=== PATIENT | female | born 1985 | race Caucasian/White ===

== ENCOUNTER 2025-02-20 11:26 | Emergency (ER) | payer BC, SELFPAY ==
[2025-02-20 11:39] VITALS: BP 138/75
[2025-02-20 12:18] LABS: Hematocrit 40.4 % (37.0-47.0); Hemoglobin 14.3 g/dL (12.0-16.0); Mean Corp Hgb Conc. 35.4 g/dL (33.0-37.0); Mean Corpuscular Volume 80.8 fL (81.0-99.0); Nucleated Red Blood Cells % 0 %; Platelet Count 292 10^3/uL (130-400); Red Cell Dist. Width 12.6 % (11.5-14.5)
[2025-02-20 12:36] LABS: HCG, Serum Qualitative Screen Negative
[2025-02-20 12:45] LABS: ALT (SGPT) 12 U/L (0-35); AST (SGOT) 19 U/L (14-36); Albumin 4.6 g/dl (3.5-5.0); Alkaline Phosphatase 73 U/L (38-126); Blood Urea Nitrogen 20 mg/dl (7-17); Calcium 9.7 mg/dl (8.4-10.2); Carbon Dioxide 24 mmol/L (22-30); Chloride 105 mmol/L (98-107); Glucose 97 mg/dl (70-99); Potassium 4.4 mmol/L (3.5-5.1); Sodium 137 mmol/L (135-145); Total Protein 7.4 g/dl (6.3-8.2); eGFR > 60.00
[2025-02-20 13:03] LABS: Troponin I < 0.012 ng/ml
--- NOTE | 2025-02-20 14:13 | ED.GENMED ---
History of Present Illness
<Adry Poe PA-C - Last Filed: 02/20/25 23:32>
General
Chief Complaint: Dizziness
Source: patient
Exam Limitations: none
Time Seen by Provider: 02/20/25 13:49
Nursing documentation reviewed up to this point in time: agreed with
History of Present Illness
History of Present Illness:
The patient is a 39-year-old female presenting with persistent neck pain associated w/ lightheadedness. Patient believes symptoms began about three weeks ago after straining a muscle while using the gym. She reports having acute onset dizziness,
which persisted three days and resolved. She has since been experiencing a lingering neck discomfort, which is worse with moving of her head and radiates into upper back/shoulders.
She has been seen by urgent care/primary care who have prescribed anti-inflammatories as well as muscle relaxers, which have improved symptoms.
At this point, she describes persistent pain in the side of her neck, mainly with turning of her head. She also feels lightheaded, most notably when going from sitting to standing position. She denies any dizziness, nausea, vomiting, fevers, or ear
pain.
Of note � patient has a history of a brain tumor, possibly a pituitary adenoma, which was diagnosed during her . She has not had any repeat imaging.
Her primary care provider has ordered a MRI of her brain as well as x-rays of her cervical spine, which have yet to be completed.
Review of Systems
<Adry Poe PA-C - Last Filed: 02/20/25 23:32>
Review of Systems
Allergies reviewed?: Yes
All Other Systems: ROS reviewed and negative except as documented in HPI and ROS
Phy Exam
<Adry Poe PA-C - Last Filed: 02/20/25 23:32>
Physical Exam
Physical Exam:
Vitals: Mildly hypertensive, otherwise vital signs stable. Afebrile
General: Patient is well appearing, no acute distress. Nontoxic appearing
Skin: Warm and dry, no rashes or lesions
Head: Normocephalic, atraumatic
Eyes: Sclera nonicteric. EOMs intact. No nystagmus.
Ears: Right ear canal is widely patent with normal tympanic membrane and normal landmarks. No
mastoid tenderness. Left ear canal is widely patent with a normal tympanic membrane with normal
landmarks. No mastoid tenderness
Throat: Protecting airway
Neck: Mild left paracervical tenderness exacerbated by head movement. No midline tenderness or meningeal signs
Cardiac: Regular rate and rhythm, no murmurs.
Pulm: Normal respiratory effort, no wheezes, rales, rhonchi heard on exam
Abdomen: Abdomen soft and nontender.
Extremities: No evidence of cyanosis or edema. Strength 5/5 in bilateral upper and lower extremities
Neuro: AAOx3. CN II-XII intact. Steady gait. Fluent speech. Normal finger-nose. Sensation intact.
Psychiatric: Normal affect.
Course
<Adry Poe PA-C - Last Filed: 02/20/25 23:32>
Orders/Labs/Results
Orders:
Orders
02/20/25 11:42
ECG [Electrocardiogram (*1)] Urgent
Reason for Study: Chest Pain
Other Reason for Exam: dizziness and L upper chest pain
02/20/25 11:43
EKG- Treatment ONCE
Test Result ONCE
02/20/25 11:59
Complete Blood Count/With Diff Urgent
Comprehensive Metabolic Panel Urgent
HCG, Serum Qualitative Screen Urgent
Troponin I Urgent
02/20/25 14:08
CT Head W/o Iv Contrast Urgent
Comment:
Reason For Exam: Dizziness, hx brain mass
Orthostatic VS- Treatment ONCE
0.9% Sodium Chloride 1000 ml [Nss] 1,000 ml IV BOLUS
Ketorolac [Toradol] 15 mg IV NOW STA
CR Cervical Spine 2 or 3 Vw Urgent
Reason For Exam: Neck pain
02/20/25 17:40
Dexamethasone [Decadron] 10 mg PO NOW STA
Abnormal Lab Results
02/20/25
11:59
MCV 80.8 L fL
(81.0-99.0)
BUN 20 H mg/dl
(7-17)
02/20/25 11:59
02/20/25 11:59
Vital Signs
Initial and Last Documented VS:
Initial Vital Signs
Temp Pulse Resp BP Pulse Ox
98.4 F 85 16 138/75 98
02/20/25 11:39 02/20/25 11:39 02/20/25 11:39 02/20/25 11:39 02/20/25 11:39
Last Documented Vital Signs
Temp Pulse Resp BP Pulse Ox
97.6 F 78 16 128/84 100
02/20/25 14:37 02/20/25 14:37 02/20/25 14:37 02/20/25 15:00 02/20/25 16:20
<Randy Sanford MD - Last Filed: 02/21/25 15:03>
Orders/Labs/Results
Orders:
Orders
02/20/25 11:42
ECG [Electrocardiogram (*1)] Urgent
Reason for Study: Chest Pain
Other Reason for Exam: dizziness and L upper chest pain
02/20/25 11:43
EKG- Treatment ONCE
Test Result ONCE
02/20/25 11:59
Complete Blood Count/With Diff Urgent
Comprehensive Metabolic Panel Urgent
HCG, Serum Qualitative Screen Urgent
Troponin I Urgent
02/20/25 14:08
CT Head W/o Iv Contrast Urgent
Comment:
Reason For Exam: Dizziness, hx brain mass
Orthostatic VS- Treatment ONCE
0.9% Sodium Chloride 1000 ml [Nss] 1,000 ml IV BOLUS
Ketorolac [Toradol] 15 mg IV NOW STA
CR Cervical Spine 2 or 3 Vw Urgent
Reason For Exam: Neck pain
02/20/25 17:40
Dexamethasone [Decadron] 10 mg PO NOW STA
Abnormal Lab Results
02/20/25
11:59
MCV 80.8 L fL
(81.0-99.0)
BUN 20 H mg/dl
(7-17)
02/20/25 11:59
02/20/25 11:59
Vital Signs
Initial and Last Documented VS:
Initial Vital Signs
Temp Pulse Resp BP Pulse Ox
98.4 F 85 16 138/75 98
02/20/25 11:39 02/20/25 11:39 02/20/25 11:39 02/20/25 11:39 02/20/25 11:39
Last Documented Vital Signs
Temp Pulse Resp BP Pulse Ox
97.6 F 78 16 128/84 100
02/20/25 14:37 02/20/25 14:37 02/20/25 14:37 02/20/25 15:00 02/20/25 16:20
<Adry Poe PA-C - Last Filed: 02/20/25 23:32>
MDM/Problems Addressed
Differential Diagnosis Includes:
Not limited to: Muscle strain/spasm, orthostatic hypotension, acute dehydration, peripheral vertigo, etc.
MDM/Problems Addressed:
39-year-old female presenting with persistent positional neck pain. Symptoms started after inciting injury while at gym approximately 3 weeks ago. She does describe 3 days of likely peripheral vertigo at that time which has resolved. Vitals and
physical exam as above. Patient overall well appearing, in no apparent distress. She is neurologically intact with a normal cerebellar exam. No nystagmus. She does have some reproducible tenderness along the left paracervical spine. She has a steady
gate.
Ultimately � suspect musculoskeletal etiology of pain. No evidence of infectious process today. Do not suspect central process. No current vertigo.
Given history of prior brain lesion � will check CT scan as well as x-ray of cervical spine as prescribed by primary care. Will treat with anti-inflammatories, check orthostatics, give IV fluids and reassess.
Update: labs reviewed. No clinically significant abnormalities. Imaging studies without acute findings. Orthostatic vital signs normal.
Patient seen in conjunction with attending physician. Overall impression is likely muscle strain/spasm of cervical spinal region likely incited by trauma occurring a few weeks ago. Patient declined toradol in ED. Will give dose of steroid. Stable
for discharge home with continued primary care follow up. Strict return precautions discussed. Advising continue with MRI brain as well as possible MRI of cervical spine with primary care.
Chronic conditions affecting care:
N/A
Acute Exacerbation and/or Progression of Chronic Illness:
N/A
<Adry Poe PA-C - Last Filed: 02/20/25 23:32>
*Radiology
Radiology exam reviewed: radiology read reviewed
*Pulse Oximetry
SaO2: 98
Oxygen Mode of Delivery: Room air
Patient hypoxic: no
*EKG
Interpreted by ED Provider?: Yes
EKG Intrepretation Date: 02/20/25
Interpretation: normal
Comparison EKG: no comparison EKG present
Heart Rate: 79
Rate: normal
Rhythm: sinus
Cheney: normal axis
Interval: normal QT interval
QRS Pattern: normal QRS
Ischemia: no ischemia
*Consulting Practice Director Interpretation
Rate: Consulting Practice Director- N/A
*Critical Care Note
Total Time (30-74mins, 75-104mins- exclusive of procedures): Not Applicable
ED Attending Note
<Adry Poe PA-C - Last Filed: 02/20/25 23:32>
-
Portions of this chart may have been created with voice recognition software.� Occasional wrong word or��sound alike� substitutions may have occurred due to the inherent limitations of voice recognition software.
<Randy Sanford MD - Last Filed: 02/21/25 15:03>
ED Attending Note
Patient seen and examined by attending physician: Yes
ED Attending Note:
Patient presents to ED secondary to persistent right-sided neck pain over the past 4 weeks. Patient has been evaluated at urgent care center as well as primary care physician, and has been prescribed Flexeril and naproxen, with mild improvement in
symptoms. Initially, patient states that she was unable to move her neck at all, and had to move her body. Since then, the pain has persisted, patient is able to move her neck. Of note, patient has been exercising with diet modification over the
past 1 year, with approximately 30 pound weight loss. Patient has also been working with personal banking representative and for the past 2 months, has increased her exercise routine, and coordination with a personal banking representative. Patient states that her initial
symptoms started, when she was on elliptical and pulled certain weight with her right arm as part of her exercise, when she felt intense pain in her right shoulder. She stopped her exercise and went to take a shower. And when she came out of the
bathroom and sat down, she felt 'helicopter' sensation with dizziness. That intense dizziness lasted 3 days with spontaneous resolution. Patient has not had recurrent dizziness since then. Denies headache. Denies blurred vision. Denies
weakness. Denies difficulty with ambulation. In addition, when she was evaluated by her primary care physician she was found to be orthostatic. Patient is scheduled for an outpatient MRI brain, in 10 days, as ordered by her primary care
physician. Patient does have history of lesion in her brain, noted in 2014, which she was told was benign. She was recommended to obtain MRI afterwards, to evaluate for progression, which she has not.
Physical Exam
General: mild distress, not acutely ill. afebrile
Head: nc/at. eomi
Neck: supple. no midline tenderness. mild left paracervical tenderness to palpation, worse when turning head to left.
Heart: s1/s2 regular rate and rhythm
Lungs: no acute respiratory distress. clear bilaterally
Abdomen: normal bowel sounds. not tender.
Neuro: alert and oriented x 3. no focal neurological deficits. normal speech. normal gait. normal finger to nose testing
Skin: no rash
Psychiatric: well kept. interactive and cooperative
Extremities: no edema. no calf tenderness.
History and exam consistent with likely ongoing symptoms, musculoskeletal in etiology. Patient does not have any neurological deficit. No other concerning symptoms for potential stroke. In light of patient's ongoing symptoms, offered CT angiogram
head and neck, to evaluate for potential vascular etiology. However, patient feels comfortable going home at this time without any further imaging studies. It is quite possible that patient may have been pushing herself beyond her limits,
resulting in her presenting symptoms. As such, patient will be treated conservatively with dose of Decadron, as well as NSAIDs, along with ice/warm compress application at home. Patient will follow-up with her primary care physician for continued
evaluation, including obtaining MRI brain as well as MRI cervical spine. Advised return to ED with worsening symptoms. Patient and spouse expressed understanding at time of discharge.
Discharge Plan
Departure
Patient Disposition: Home (Routine Discharge)
Date of Disposition: 02/20/25
Time of Disposition: 17:41
Patient with high blood pressure during this ER visit?: Yes
Discharge Problem:
Neck pain
Instructions: Muscle spasm - ED discharge instructions
Prescriptions:
New
dexamethasone 2 mg tablet
10 mg PO ONCE Qty: 5 0RF
Referrals:
Steve Landeros MD [Family Provider, Internal Medicine] - Follow up in 5-7 days
Activity Restrictions/Additional Instructions:
RETURN TO THE EMERGENCY DEPARTMENT ANY FEVER, CHILLS, INTRACTABLE PAIN IN NECK, NUMBNESS/TINGLING IN ARMS, SEVERE HEADACHE, WORSENING CURRENT SYMPTOMS, OR ANY OTHER CONCERNS
- As discussed�your lab work and imaging obtained in the emergency department showed no acute abnormalities. We suspect your symptoms are likely related to a muscular strain/spasm.
- You were given a dose of steroid in the emergency department. If symptoms persist/worsen over the next 2 days you can repeat the steroid. This has been sent to your pharmacy.
- Please talk to your primary care provider about potentially addition of MRI of the cervical spine, as well.
- Stay well-hydrated. Take Tylenol and/or Motrin as needed for pain.
- Follow-up with primary care for further evaluation/management to ensure the symptoms are improving
Monitor your symptoms closely and return to the emergency department with any acute worsening/new symptoms or any other concerns
Interventions
Interventions:
*Risk Screen - Suicide Last Done: 02/20/25 14:37
*General Assessment Last Done: 02/20/25 14:37
*Neglect/Abuse Screening Last Done: 02/20/25 14:37
*ED- Fall Risk Assessment Last Done: 02/20/25 14:37
*ED COVID-19 Vaccine History Last Done: 02/20/25 14:37
*Nursing Disposition Last Done: 02/20/25 17:50
ED- Cardiac Assessment Last Done: 02/20/25 14:37
ED- Neurological Assessment Last Done: 02/20/25 14:37
ED Swallowing Screen Last Done: 02/20/25 14:37
Discharge Date and Time
Discharge Date/Time: 02/20/25 17:50
Print Language: GEORGIAN
[2025-02-20 14:28] VITALS: BMI 26.9
[2025-02-20 14:34] VITALS: BP 136/92
[2025-02-20 14:37] VITALS: BP 136/92
[2025-02-20] MEDS: NSS 1000 IV (14:42)
[2025-02-20 15:00] VITALS: BP 128/84
--- NOTE | 2025-02-20 16:20 | EDRN ---
the pt pressed the call jarquin and this RN entered the pts room, the pts stated to this RN, 'We want to leave, this is just a waste of time, we just saw a PA and we wanted to see a doctor, that's why we came here to see a doctor who is
skilled, not a PA who's not trained in diagnosing, we want to see a doctor and have been waiting way too long this is ridiculous', this RN notified Estelita BRANDT who spoke to Dr. Sanford who will speak to the pt and the pts , the pt was agreeable to
orthostatic vital signs
[2025-02-20 16:22] VITALS: BP 128/84; BP 136/71; BP 140/87; PULSE 82; PULSE 85; PULSE 88
--- NOTE | 2025-02-20 17:01 | EDRN ---
the pts came out of the pts room and approached this RN and stated to this RN, 'You need to come in here now and just take her IV out, we are leaving, we haven't been seen and nothing has been done', this RN notified Dr. Sanford who is currently
at the pts bedside
--- NOTE | 2025-02-20 17:16 | EDRN ---
Dr. Sanford currently still at the pts bedside
[2025-02-20] MEDS: DECADRON 10 MG PO (17:45)
== END 2025-02-20 17:50 | disposition home or self-care (01) ==
LOC: EMR 11:26
PROVIDERS: Emergency Medicine; EMERGENCY PHYSICIAN Emergency Medicine; FAMILY PHYSICIAN Internal Medicine
DX: M54.2 Cervicalgia (principal); R03.0 Elevated blood-pressure reading, without diagnosis of hypertension
CPT/HCPCS: 99284; 96360; 70450; 72040; 80053; 84484; 84703; 85025; 93005